=== PATIENT | male | born 1990 | race Caucasian/White ===

== ENCOUNTER 2020-12-01 23:35 | Inpatient (IN) | payer OTHER, SELFPAY ==
--- NOTE | 2020-12-02 | ECG_ITS ---
Test Reason : New admission Blood Pressure : / mmHG Vent. Rate : 086 BPM Atrial Rate : 086 BPM P-R Int : 152 ms QRS Dur : 108 ms QT Int : 348 ms P-R-T Axes : 057 031 033 degrees QTc Int : 416 ms Normal sinus rhythm Normal ECG No previous ECGs available Referred By: Jennifer Ko Electronically Signed By:Sebastian Fine
[2020-12-02 01:23] VITALS: BMI 32.8
[2020-12-02 01:24] VITALS: BP 115/73; PULSE 88; RESP 20; TEMP 36.1; O2SAT 95
--- NOTE | 2020-12-02 02:44 | PC.ADMIT ---
Pt is a 30 yo male on a CV, 15 min checks. 3 days ago he was brought to [facility] for his 2nd heroin OD in 2 days. Pt denies ODs were intentional. Pt said the cut a bundle of heroin in half and it was stronger than he expected. Pt denies SI or HI. Pt contracts for safety and is in full control of aggressive impulses. On admission Pt was calm, stable and cooperative. Pt reports drinking around 6 beers daily. Pt last drank or drugged prior to going to [facility] ED. Pt shows no signs/symptoms or has any complaints of withdrawal. Pt's goal for admission is to get medications for his anxiety and depression. Pt says his anxiety attacks feel like heart attacks. Pt also described having the symptoms of agoraphobia. This RN and Pt had a short discussion that sobriety should be in his future plans. Pt. doesn't seem to have insight into the full gravity of his MDD, OD's and ETOH use. Pt denied taking any prescribed medications. Dale reports last Rx: Klonopin 1mg, 1 1/2 tab BID for 3 days filled 09/13/20. Everything else was from 03/22
[2020-12-02 08:50] LABS: MANUAL DIFF FLAG NO
[2020-12-02 09:06] LABS: Basophils Absolute Auto 0.1 X10*3/uL (0.0-0.2); Basophils Percent Auto 0.8 % (0-2); Eosinophils Absolute Auto 0.2 X10*3/uL (0.0-0.4); Eosinophils Percent Auto 2.8 % (0-4); Hematocrit 44.6 % (42-52); Hemoglobin 15.5 g/dl (14.0-18.0); Imm Gran Abs Auto 0.02 X10*3/uL (0.00-0.03); Imm Gran Pct Auto 0.3 % (0.0-0.4); Lymphocytes Absolute Auto 1.7 X10*3/uL (1.2-4.9); Lymphocytes Percent Auto 25.7 % (20-40); Mean Corpuscular HGB Conc 34.8 g/dl (31.0-36.0); Mean Corpuscular Hemoglobin 32.4 pg (27.0-33.0); Mean Corpuscular Volume 93.1 fL (80-98); Mean Platelet Volume 10.2 fL (9.4-12.4); Monocytes Absolute Auto 0.5 X10*3/uL (0.1-1.2); Monocytes Percent Auto 8.3 % (2-11); Neutrophils Percent Auto 62.1 % (45-73); Platelet Count 246 X10*3/uL (160-400); Red Blood Count 4.79 X10*6/uL (4.60-5.80); Red Cell Distribution Width 11.6 % (11.0-16.0); White Blood Count 6.4 X10*3/uL (4.8-10.8)
[2020-12-02 09:42] LABS: Alanine Aminotransferase 20 U/L (0-40); Albumin Level 4.3 g/dL (3.5-5.0); Alkaline Phosphatase 63 U/L (39-117); Anion Gap 14 (12-20); Aspartate Amino Transferase 17 U/L (5-37); Bilirubin Total 1.2 mg/dL (0.0-1.0); Blood Urea Nitrogen 12 mg/dL (9-16); Calcium 9.2 mg/dL (8.4-10.2); Carbon Dioxide 27 mmol/L (22-29); Chloride 102 mmol/L (96-108); Creatinine Clr Calc Pharmacy 168.2; Estimated Glomerular Filt Rate > 60; Glucose Fasting 79 mg/dL (60-99); Potassium 4.1 mmol/L (3.3-5.1); Sodium 139 mmol/L (135-145)
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
[2020-12-02 18:00] VITALS: BP 135/92; PULSE 76; TEMP 36.6
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
[2020-12-03 06:05] VITALS: BP 92/50; PULSE 65; RESP 16; TEMP 36.4
--- NOTE | 2020-12-03 08:28 | HE.PHANOTE ---
OVERNIGHT MD CALLED PHARMACY TO SEE IF WE COULD HELP INVESTIGATE A MED PATIENT WAS REPORTING BEING ON OUTPATIENT. PER MD PT WAS REPORTING BEING ON LISINOPRIL BUT DID NOT KNOW THE DOSE. HE REPORTED THAT HIS MOTHER HAD THE BOTTLE BUT HER CONTACT INFO IS NOT IN [employer]. NO LISINOPRIL IN CLAIM HISTORY. CALLED UNIT TO GET MORE INFO FROM PATIENT AND NURSE REPORTED THAT NOW PATIENT IS SAYING HE HAS NO MEMORY OF SAYING HE WAS ON LISINOPRIL AND PATIENT DOES NOT WANT US TO CONTACT HIS MOTHER. PATIENT'S BP IS CURRENTLY LOW, MD HAD ORDERED LISINOPRIL 10MG, CONTACTED RN AND TALKED HER NOT TO GIVE DUE TO LOW BP, CONTACTED HOSPITALIST QB TO [facility] MED.
--- NOTE | 2020-12-03 09:39 | HO.PSYCHPN ---
Subjective Subjective Date of Service: 12/03/20 Reason For Visit: Major Depressive Disorder Interim History: Patient reports he is doing okay. He talked more about his depression and says that he feels often worried that successful not happen which limits his willingness to try at things. Patient shared that he is more open to considering SSRI type of medication. Upper Lining Cementer reviewed Nikole's report that he only picked up a script for Prozac 1 time. Patient says that he certainly took it for a much longer time, but upon reflecting he realizes it was probably just intermittently and not consistently every day and agrees he probably never reached what handbook writer had described as a therapeutic dose and duration. He also thinks that perhaps it was Paxil, and not Prozac, that caused discontinuation syndrome. Patient said he is more willing to retry therapy. He agrees to further think about starting an SSRI and will discuss more tomorrow. Patient asked again and handbook writer reviewed risks, side effects of naltrexone which patient said he would like to get on and agrees to start this weekend. Mental Status Exam Mental Status Exam Narrative: Pt is alert and oriented; behavior is cooperative, friendly and calm; patient is not in distress; dressed in casual attire with adequate hygiene; mood is described as ok and affect congruent; eye contact appropriate; Speech is normal rate, volume and prosody and not pressured; no psychomotor agitation/retardation present; thought process is organized, linear, logical and goal directed. Thought content is on getting treatment but no longer focused on benzo's and otherwise pertinent to relevant topics and without any delusional content, paranoid ideations or grandiosity; denies any SI/HI. There is no evidence of perceptual disturbance. Patients insight and judgment appear intact. Diagnostics Vital Signs (24Hr): Vital Signs - 24 hr 12/02/20 18:00 12/03/20 06:05 Temperature 97.9 F 97.5 F Pulse Rate 76 65 Respiratory Rate 16 Blood Pressure 135/92 H 92/50 L Body Mass Index 32.8 Labs Results: 12/02/20 08:05 12/02/20 08:05 Labs: Laboratory Results - last 48 hr 12/02/20 12/02/20 08:05 08:05 WBC 6.4 RBC 4.79 Hgb 15.5 Hct 44.6 MCV 93.1 MCH 32.4 MCHC 34.8 RDW 11.6 Plt Count 246 MPV 10.2 Immature Gran % (Auto) 0.3 Neut % (Auto) 62.1 Lymph % (Auto) 25.7 [place] % (Auto) 8.3 Eos % (Auto) 2.8 Baso % (Auto) 0.8 Lymph # (Auto) 1.7 [place] # (Auto) 0.5 Eos # (Auto) 0.2 Baso # (Auto) 0.1 Abs Immat Gran (auto) 0.02 Absolute Neuts (auto) 4.0 Absolute Nucleated RBC 0.000 Nucleated RBC % (auto) 0.0 Sodium 139 Potassium 4.1 Chloride 102 Carbon Dioxide 27 Anion Gap 14 BUN 12 Creatinine 0.83 Estim Creat Clear Calc 168.2 Estimated GFR > 60 Fasting Glucose 79 Calcium 9.2 Total Bilirubin 1.2 H AST 17 ALT 20 Alkaline Phosphatase 63 Total Protein 7.0 Albumin 4.3 Medications Medications Current Medications Generic Name Dose Route Start Last Admin Trade Name Freq PRN Reason Stop Dose Admin Acetaminophen 650 mg 12/02/20 06:26 Acetaminophen 325 Mg Tablet PO Q6H PRN Headache/Pain Mild Scale (1-3) Al Hydroxide/Mg Hydroxide 30 ml 12/02/20 06:26 Magnesium Hydrox/Alum Hydrox 30 Ml Oral.Susp PO Q6H PRN Heartburn/Nausea Clonidine HCl 0.1 mg 12/02/20 15:49 Clonidine Hcl 0.1 Mg Tablet PO Q4H PRN Anxiety Protocol Hydroxyzine HCl 50 mg 12/02/20 15:49 Hydroxyzine Hcl 25 Mg Tablet PO BEDTIME PRN Insomnia Lisinopril 10 mg 12/03/20 09:00 Lisinopril 10 Mg Tablet PO DAILY [facility] Protocol Lorazepam 1 mg 12/02/20 15:49 Lorazepam 1 Mg Tablet PO DAILY PRN PANIC ATTACK Magnesium Hydroxide 30 ml 12/02/20 06:26 Milk Of Magnesia 30 Ml Oral.Susp PO DAILY PRN Constipation Nicotine Polacrilex 2 mg 12/02/20 06:26 Nicotine Polacrilex 2 Mg Gum BUCCAL Q2H PRN Nicotine Cravings Omeprazole 20 mg 12/04/20 06:30 Omeprazole 20 Mg Capsule. PO DAILY@0630 [facility] Allergies Allergies Allergy/AdvReac Type Severity Reaction Status Date / Time Unable to Assess Allergy Unverified 12/02/20 06:26 Assessment & Plan Assessment & Plan (1) Hypertension: Status: Inactive Code(s): I10 - Essential (primary) hypertension (2) PTSD (post-traumatic stress disorder): Status: Acute Code(s): F43.10 - Post-traumatic stress disorder, unspecified (3) ASUNCION (generalized anxiety disorder): Status: Acute Code(s): F41.1 - Generalized anxiety disorder (4) Opioid abuse: Status: Acute Code(s): F11.10 - Opioid abuse, uncomplicated Assessment and Plan: Pt is a 30 yo male w/ hx of depression, ptsd, substance abuse who presents after accidental overdose on heroin. Pt reports crippling anxiety and reported agoraphobia. Will need to assess further to rule out OCD. Patient reports 1 trial on Prozac that he says did nothing. He was initially very focused on being prescribed benzodiazepines and seems to resist trials of other medications that address this type of anxiety. Upper Lining Cementer tried to explain risks of benzodiazepine including addiction and dangers when combined with substance abuse, however patient struggled to accept that he was not a candidate for benzos. To that end however he said he would very willingly get on naltrexone to stay sober from opiates. Patient denies any SI at all. He reports minimal depression and says it is mostly due to struggles with anxiety (of note crisis note reports Mai depression inventory revealed only ?borderline clinical depression ). Patient discussed his history with therapist expressing some vague suspicions, but no clear paranoid ideations. Patient has become more willing to consider SSRIs and is no longer asking for benzos. PLAN pt on CV consider trial of SSRI/SNRI get pt on naltrexone Ativan 1 mg daily for panic attack Per medical clearance: # hypertension - patient reports history of hypertension and taking lisinopril - he does not know the dose of his medications - his blood pressure is 135/92 - will start him on lisinopril 10 mg at this time, will solicit pharmacy account director in finding out more information about his medication use # GERD - warts that he takes omeprazole at home - will continue that Greater than 50% of the session was spent on counseling and/or coordination of care Reason for contiued inpatient stay Substantial Risk for: med/psych decompensation
[2020-12-03 10:08] LABS: Cholesterol 203 mg/dL; HDL Cholesterol 54 mg/dL; LDL Cholesterol Calculated 132 mg/dl; Triglycerides 85 mg/dL
[2020-12-03 10:11] LABS: Estimated Average Glucose 85 mg/dL; Hemoglobin A1c % 4.6 %
[2020-12-03] MEDS: LORazepam 1 MG TABLET PO (12:02)
[2020-12-03 18:00] VITALS: BP 111/78; PULSE 90; TEMP 36.6
[2020-12-03] MEDS: Melatonin 3 MG TABLET PO (20:05)
[2020-12-04] MEDS: LORazepam 1 MG TABLET PO (01:26)
[2020-12-04 06:05] VITALS: BP 104/55; PULSE 72; RESP 16; TEMP 36.1; O2SAT 95
[2020-12-04] MEDS: Omeprazole 20 MG CAPSULE.DR PO (06:17)
--- NOTE | 2020-12-04 14:30 | P.PNPSI_ITS ---
Subjective Subjective Date of Service: 12/04/20 Reason For Visit: Major Depressive Disorder Interim History: pt reports his mood is a little better, but he remains anxious. He agrees to trial of SSRI and is open to Prozac, Zoloft, lexapro or whatever commercial real estate underwriter thinks best. He asks if ativan can be changed to Clonazepam since it's longer acting however accepts writers discussion that goal is find an SSRI that helps lower anxiety and do not want to muddy clinical picture with change of benzo's; commercial real estate underwriter also explained that pt will not be able to have a prescription for benzo's (maybe 4/month total in case of panic) given struggles with substance abuse. To that end, pt agrees to start Naltrexone and hopes to get on Vivitrol. Pt said he's feeling like he'll be ready to discharge early next week. Hand Stone Polisher asked again about SI, to which pt denies and says has nothing to do with consecurtive overdoses; he says he knows that back to back overdoses looks like SI, but he says though he feels it was the dumbest thing he's ever done, he had and has no SI at all. Mental Status Exam Mental Status Exam Narrative: Pt is alert and oriented; behavior is cooperative, friendly and calm; patient is not in distress; dressed in casual attire with adequate hygiene; mood is described as good and affect congruent; eye contact appropriate; Speech is normal rate, volume and prosody and not pressured; no psychomotor agitation/retardation present; thought process is organized, linear, logical and goal directed. Thought content is on getting treatment; pertinent to relevant topics and without any delusional content, paranoid ideations or grandiosity; denies any SI/HI. There is no evidence of perceptual disturbance. Patients insight and judgment appear intact. Diagnostics Vital Signs (24Hr): Vital Signs - 24 hr 12/03/20 18:00 12/04/20 06:05 Temperature 98 F 96.9 F Pulse Rate 90 72 Respiratory Rate 16 Blood Pressure 111/78 104/55 L Pulse Oximetry 95 Body Mass Index 32.8 Labs Results: 12/02/20 08:05 12/02/20 08:05 Labs: Laboratory Results - last 48 hr 12/03/20 12/03/20 08:16 08:16 Estimat Average Glucose 85 Hemoglobin A1c % 4.6 Triglycerides 85 Cholesterol 203 LDL Cholesterol, Calc 132 HDL Cholesterol 54 Medications Medications Current Medications Generic Name Dose Route Start Last Admin Trade Name Freq PRN Reason Stop Dose Admin Acetaminophen 650 mg 12/02/20 06:26 Acetaminophen 325 Mg Tablet PO Q6H PRN Headache/Pain Mild Scale (1-3) Al Hydroxide/Mg Hydroxide 30 ml 12/02/20 06:26 Magnesium Hydrox/Alum Hydrox 30 Ml Oral.Susp PO Q6H PRN Heartburn/Nausea Clonidine HCl 0.1 mg 12/02/20 15:49 Clonidine Hcl 0.1 Mg Tablet PO Q4H PRN Anxiety Protocol Hydroxyzine HCl 50 mg 12/02/20 15:49 Hydroxyzine Hcl 25 Mg Tablet PO BEDTIME PRN Insomnia Lorazepam 1 mg 12/02/20 15:49 12/04/20 01:26 Lorazepam 1 Mg Tablet PO 1 mg DAILY PRN Administration PANIC ATTACK Magnesium Hydroxide 30 ml 12/02/20 06:26 Milk Of Magnesia 30 Ml Oral.Susp PO DAILY PRN Constipation Melatonin 3 mg 12/03/20 17:46 12/03/20 20:05 Melatonin 3 Mg Tablet PO 3 mg BEDTIME PRN Administration Insomnia Nicotine Polacrilex 2 mg 12/02/20 06:26 Nicotine Polacrilex 2 Mg Gum BUCCAL Q2H PRN Nicotine Cravings Omeprazole 20 mg 12/04/20 06:30 12/04/20 06:17 Omeprazole 20 Mg Capsule. PO 20 mg DAILY@0630 ASAEL Administration Allergies Allergies Allergy/AdvReac Type Severity Reaction Status Date / Time Unable to Assess Allergy Unverified 12/02/20 06:26 Assessment & Plan Assessment & Plan (1) Hypertension: Status: Inactive Code(s): I10 - Essential (primary) hypertension (2) PTSD (post-traumatic stress disorder): Status: Acute Code(s): F43.10 - Post-traumatic stress disorder, unspecified (3) ASUNCION (generalized anxiety disorder): Status: Acute Code(s): F41.1 - Generalized anxiety disorder (4) Opioid abuse: Status: Acute Code(s): F11.10 - Opioid abuse, uncomplicated Assessment and Plan: Pt is a 30 yo male w/ hx of depression, ptsd, substance abuse who presents after accidental overdose on heroin. Pt reports crippling anxiety and reported agora phobia. Will need to assess further to rule out OCD. Patient reports 1 trial on Prozac that he says did nothing. He was initially very focused on being prescribed benzodiazepines and seems to resist trials of other medications that address this type of anxiety. Hand Stone Polisher tried to explain risks of benzodiazepine including addiction and dangers when combined with substance abuse, however patient struggled to accept that he was not a candidate for benzos. To that end however he said he would very willingly get on naltrexone to stay sober from opiates. Patient denies any SI at all. He reports minimal depression and says it is mostly due to struggles with anxiety (of note crisis note reports Mai depression inventory revealed only ?borderline clinical depression ). Patient discussed his history with therapist expressing some vague suspicions, but no clear paranoid ideations. Patient agrees to start SSRI; will start Lexapro given lower side-effect profile and possible less risk of being activating given pt's hx of anxiety PLAN pt on CV start Lexapro 10mg start naltrexone will get lfts after day or two with goal to get on vivitrol Ativan 1 mg daily for panic attack Per medical clearance: # hypertension - patient reports history of hypertension and taking lisinopril - he does not know the dose of his medications - his blood pressure is 135/92 - will start him on lisinopril 10 mg at this time, will solicit pharmacy customer care specialist in finding out more information about his medication use # GERD - warts that he takes omeprazole at home - will continue that Greater than 50% of the session was spent on counseling and/or coordination of care Reason for contiued inpatient stay Substantial Risk for: med/psych decompensation
[2020-12-04 16:40] VITALS: BP 126/67; PULSE 86; TEMP 36.6
[2020-12-05] MEDS: LORazepam 1 MG TABLET PO (01:00)
[2020-12-05] MEDS: Omeprazole 20 MG CAPSULE.DR PO (08:22)
[2020-12-05] MEDS: Naltrexone HCl 50 MG TABLET PO (08:22)
[2020-12-05] MEDS: Escitalopram Oxalate 10 MG TABLET PO (12:29)
[2020-12-05 17:00] VITALS: BP 134/75; PULSE 83; RESP 18; TEMP 36.4; O2SAT 94
--- NOTE | 2020-12-05 20:55 | P.PNPSI_ITS ---
Subjective Subjective Date of Service: 12/05/20 Reason For Visit: Major Depressive Disorder Interim History: Thiago agreed to start lexapro which was Rx by Dr. Hernandez today. He was pleasant and cooperative and had no immediate concerns Medication Compliance: Yes Side effects from medications: No Attending Groups: Yes Review of Systems Acute medical concerns: No Medical Review of Systems: unchanged Mental Status Exam Mental Status Exam Narrative: Pt is alert and oriented; behavior is cooperative, friendly and calm; patient is not in distress; dressed in casual attire with adequate hygiene; mood is described as good and affect congruent; eye contact appropriate; Speech is normal rate, volume and prosody and not pressured; no psychomotor agitation/retardation present; thought process is organized, linear, logical and goal directed. Thought content is on getting treatment; pertinent to relevant topics and without any delusional content, paranoid ideations or grandiosity; denies any SI/HI. There is no evidence of perceptual disturbance. Patients insight and judgment appear intact. Diagnostics Vital Signs (24Hr): Vital Signs - 24 hr 12/05/20 17:00 Temperature 97.5 F Pulse Rate 83 Respiratory Rate 18 Blood Pressure 134/75 Pulse Oximetry 94 Body Mass Index 32.8 Labs Results: 12/02/20 08:05 12/02/20 08:05 Medications Medications Current Medications Generic Name Dose Route Start Last Admin Trade Name Kyleq PRN Reason Stop Dose Admin Acetaminophen 650 mg 12/02/20 06:26 Acetaminophen 325 Mg Tablet PO Q6H PRN Headache/Pain Mild Scale (1-3) Al Hydroxide/Mg Hydroxide 30 ml 12/02/20 06:26 Magnesium Hydrox/Alum Hydrox 30 Ml Oral.Susp PO Q6H PRN Heartburn/Nausea Clonidine HCl 0.1 mg 12/02/20 15:49 Clonidine Hcl 0.1 Mg Tablet PO Q4H PRN Anxiety Protocol Escitalopram Oxalate 10 mg 12/05/20 12:05 12/05/20 12:29 Escitalopram Oxalate 10 Mg Tablet PO 10 mg DAILY ASAEL Administration Hydroxyzine HCl 50 mg 12/02/20 15:49 Hydroxyzine Hcl 25 Mg Tablet PO BEDTIME PRN Insomnia Lorazepam 1 mg 12/02/20 15:49 12/05/20 01:00 Lorazepam 1 Mg Tablet PO 1 mg DAILY PRN Administration PANIC ATTACK Magnesium Hydroxide 30 ml 12/02/20 06:26 Milk Of Magnesia 30 Ml Oral.Susp PO DAILY PRN Constipation Melatonin 3 mg 12/03/20 17:46 12/03/20 20:05 Melatonin 3 Mg Tablet PO 3 mg BEDTIME PRN Administration Insomnia Naltrexone HCl 50 mg 12/05/20 09:00 12/05/20 08:22 Naltrexone Hcl 50 Mg Tablet PO 50 mg DAILY ASAEL Administration Nicotine Polacrilex 2 mg 12/02/20 06:26 Nicotine Polacrilex 2 Mg Gum BUCCAL Q2H PRN Nicotine Cravings Omeprazole 20 mg 12/04/20 06:30 12/05/20 08:22 Omeprazole 20 Mg Capsule. PO 20 mg DAILY@0630 ASAEL Administration Allergies Allergies Allergy/AdvReac Type Severity Reaction Status Date / Time Unable to Assess Allergy Unverified 12/02/20 06:26 Assessment & Plan Assessment & Plan (1) Hypertension: Status: Inactive Code(s): I10 - Essential (primary) hypertension (2) PTSD (post-traumatic stress disorder): Status: Acute Code(s): F43.10 - Post-traumatic stress disorder, unspecified (3) ASUNCION (generalized anxiety disorder): Status: Acute Code(s): F41.1 - Generalized anxiety disorder (4) Opioid abuse: Status: Acute Code(s): F11.10 - Opioid abuse, uncomplicated Assessment and Plan: Pt is a 30 yo male w/ hx of depression, ptsd, substance abuse who presents after accidental overdose on heroin. Pt reports crippling anxiety and reported agoraphobia. Will need to assess further to rule out OCD. Patient reports 1 trial on Prozac that he says did nothing. He was initially very focused on being prescribed benzodiazepines and seems to resist trials of other medications that address this type of anxiety. Business Transformation Analyst tried to explain risks of benzodiazepine including addiction and dangers when combined with substance abuse, however patient struggled to accept that he was not a candidate for benzos. To that end however he said he would very willingly get on naltrexone to stay sober from opiates. Patient denies any SI at all. He reports minimal depression and says it is mostly due to struggles with anxiety (of note crisis note reports Mai depression inventory revealed only ?borderline clinical depression ). Patient discussed his history with therapist expressing some vague suspicions, but no clear paranoid ideations. Patient agrees to start SSRI; will start Lexapro given lower side-effect profile and possible less risk of being activating given pt's hx of anxiety PLAN pt on CV start Lexapro 10mg start naltrexone will get lfts after day or two with goal to get on vivitrol Ativan 1 mg daily for panic attack Per medical clearance: # hypertension - patient reports history of hypertension and taking lisinopril - he does not know the dose of his medications - his blood pressure is 135/92 - will start him on lisinopril 10 mg at this time, will solicit nurses medical assistants phlebotomists in finding out more information about his medication use # GERD - warts that he takes omeprazole at home - will continue that Continue plan as above without change Greater than 50% of the session was spent on counseling and/or coordination of care Patient educated on: diagnosis and medication risk/benefits Informed Consent: further education needed Reason for contiued inpatient stay Substantial Risk for: inability to function
[2020-12-06] MEDS: Omeprazole 20 MG CAPSULE.DR PO (05:47)
[2020-12-06 06:00] VITALS: BP 133/69; PULSE 100; RESP 20; TEMP 36.2; O2SAT 97
[2020-12-06] MEDS: Escitalopram Oxalate 10 MG TABLET PO (08:08)
[2020-12-06] MEDS: Naltrexone HCl 50 MG TABLET PO (08:08)
[2020-12-06] MEDS: LORazepam 1 MG TABLET PO (13:10)
[2020-12-06 16:47] VITALS: BP 121/84; PULSE 98; RESP 18; TEMP 36.5; O2SAT 96
--- NOTE | 2020-12-06 18:46 | HO.PSYCHPN ---
Subjective Subjective Date of Service: 12/06/20 Reason For Visit: Major Depressive Disorder Interim History: Thiago was playing cards with his peers and he stated that he had no immediate concerns Medication Compliance: Yes Side effects from medications: No Review of Systems Acute medical concerns: No Medical Review of Systems: unchanged Mental Status Exam Mental Status Exam Narrative: Pt is alert and oriented; behavior is cooperative, friendly and calm; patient is not in distress; dressed in casual attire with adequate hygiene; mood is described as good and affect congruent; eye contact appropriate; Speech is normal rate, volume and prosody and not pressured; no psychomotor agitation/retardation present; thought process is organized, linear, logical and goal directed. Thought content is on getting treatment; pertinent to relevant topics and without any delusional content, paranoid ideations or grandiosity; denies any SI/HI. There is no evidence of perceptual disturbance. Patients insight and judgment appear intact. Diagnostics Vital Signs (24Hr): Vital Signs - 24 hr 12/06/20 06:00 12/06/20 16:47 Temperature 97.1 F 97.7 F Pulse Rate 100 98 Respiratory Rate 20 18 Blood Pressure 133/69 121/84 Pulse Oximetry 97 96 Body Mass Index 32.8 Labs Results: 12/02/20 08:05 12/02/20 08:05 Medications Medications Current Medications Generic Name Dose Route Start Last Admin Trade Name Kyleq PRN Reason Stop Dose Admin Acetaminophen 650 mg 12/02/20 06:26 Acetaminophen 325 Mg Tablet PO Q6H PRN Headache/Pain Mild Scale (1-3) Al Hydroxide/Mg Hydroxide 30 ml 12/02/20 06:26 Magnesium Hydrox/Alum Hydrox 30 Ml Oral.Susp PO Q6H PRN Heartburn/Nausea Clonidine HCl 0.1 mg 12/02/20 15:49 Clonidine Hcl 0.1 Mg Tablet PO Q4H PRN Anxiety Protocol Escitalopram Oxalate 10 mg 12/05/20 12:05 12/06/20 08:08 Escitalopram Oxalate 10 Mg Tablet PO 10 mg DAILY ASAEL Administration Hydroxyzine HCl 50 mg 12/02/20 15:49 Hydroxyzine Hcl 25 Mg Tablet PO BEDTIME PRN Insomnia Lorazepam 1 mg 12/02/20 15:49 12/06/20 13:10 Lorazepam 1 Mg Tablet PO 1 mg DAILY PRN Administration PANIC ATTACK Magnesium Hydroxide 30 ml 12/02/20 06:26 Milk Of Magnesia 30 Ml Oral.Susp PO DAILY PRN Constipation Melatonin 3 mg 12/03/20 17:46 12/03/20 20:05 Melatonin 3 Mg Tablet PO 3 mg BEDTIME PRN Administration Insomnia Naltrexone HCl 50 mg 12/05/20 09:00 12/06/20 08:08 Naltrexone Hcl 50 Mg Tablet PO 50 mg DAILY ASAEL Administration Nicotine Polacrilex 2 mg 12/02/20 06:26 Nicotine Polacrilex 2 Mg Gum BUCCAL Q2H PRN Nicotine Cravings Omeprazole 20 mg 12/04/20 06:30 12/06/20 05:47 Omeprazole 20 Mg Capsule. PO 20 mg DAILY@0630 ASAEL Administration Allergies Allergies Allergy/AdvReac Type Severity Reaction Status Date / Time Unable to Assess Allergy Unverified 12/02/20 06:26 Assessment & Plan Assessment & Plan (1) Hypertension: Status: Inactive Code(s): I10 - Essential (primary) hypertension (2) PTSD (post-traumatic stress disorder): Status: Acute Code(s): F43.10 - Post-traumatic stress disorder, unspecified (3) ASUNCION (generalized anxiety disorder): Status: Acute Code(s): F41.1 - Generalized anxiety disorder (4) Opioid abuse: Status: Acute Code(s): F11.10 - Opioid abuse, uncomplicated Assessment and Plan: Pt is a 30 yo male w/ hx of depression, ptsd, substance abuse who presents after accidental overdose on heroin. Pt reports crippling anxiety and reported agoraphobia. Will need to assess further to rule out OCD. Patient reports 1 trial on Prozac that he says did nothing. He was initially very focused on being prescribed benzodiazepines and seems to resist trials of other medications that address this type of anxiety. Ammonia Solution Preparer tried to explain risks of benzodiazepine including addiction and dangers when combined with substance abuse, however patient struggled to accept that he was not a candidate for benzos. To that end however he said he would very willingly get on naltrexone to stay sober from opiates. Patient denies any SI at all. He reports minimal depression and says it is mostly due to struggles with anxiety (of note crisis note reports Mai depression inventory revealed only ?borderline clinical depression ). Patient discussed his history with therapist expressing some vague suspicions, but no clear paranoid ideations. Patient agrees to start SSRI; will start Lexapro given lower side-effect profile and possible less risk of being activating given pt's hx of anxiety PLAN pt on CV start Lexapro 10mg start naltrexone will get lfts after day or two with goal to get on vivitrol Ativan 1 mg daily for panic attack Per medical clearance: # hypertension - patient reports history of hypertension and taking lisinopril - he does not know the dose of his medications - his blood pressure is 135/92 - will start him on lisinopril 10 mg at this time, will solicit pharmacy general manager in finding out more information about his medication use # GERD - warts that he takes omeprazole at home - will continue that Continue plan as above without change Greater than 50% of the session was spent on counseling and/or coordination of care Patient educated on: diagnosis and medication risk/benefits Informed Consent: further education needed Reason for contiued inpatient stay Substantial Risk for: inability to function
[2020-12-07 06:00] VITALS: BP 122/77; PULSE 75; RESP 16; TEMP 36.4; O2SAT 95
[2020-12-07] MEDS: Omeprazole 20 MG CAPSULE.DR PO (06:45)
[2020-12-07] MEDS: Naltrexone HCl 50 MG TABLET PO (08:31)
[2020-12-07] MEDS: Escitalopram Oxalate 10 MG TABLET PO (08:32)
[2020-12-07 09:19] LABS: Alanine Aminotransferase 20 U/L (0-40); Albumin Level 4.1 g/dL (3.5-5.0); Alkaline Phosphatase 61 U/L (39-117); Aspartate Amino Transferase 18 U/L (5-37); Bilirubin Direct 0.3 mg/dL (0.0-0.5); Total Protein 6.7 g/dL (6.5-8.0)
[2020-12-07] MEDS: LORazepam 1 MG TABLET PO (14:37)
[2020-12-07 16:43] VITALS: BP 146/67; PULSE 80; RESP 18; TEMP 36.2; O2SAT 96
[2020-12-08] MEDS: Melatonin 3 MG TABLET PO (01:43)
[2020-12-08 06:20] VITALS: BP 129/73; PULSE 81; RESP 16; TEMP 36.8; O2SAT 95
[2020-12-08] MEDS: Omeprazole 20 MG CAPSULE.DR PO (09:30)
[2020-12-08] MEDS: Escitalopram Oxalate 20 MG TABLET PO (09:30)
[2020-12-08] MEDS: Naltrexone HCl 50 MG TABLET PO (09:31)
--- NOTE | 2020-12-08 09:47 | HO.PSYCHPN ---
Subjective Subjective Date of Service: 12/07/20 Reason For Visit: Major Depressive Disorder Subjective Notes: 3 Day Interim History: pt placed 3 day; he says he feels mostly ready to go but put in a 3 day since the unit milue was acute over the weekend and pt felt it was a counterproductive and triggering for his anxiety. To that end he reports no problems with Lexapro and agrees to increased dose; he says no side-effects with naltrexone and is grateful to have something to keep him sober. Pt says he wants to get on Vivitrol OBINNA and is pleased to hear he has outpt appointment set up. Pt broached topic of benzo's and accepts that handbook writer will give a limited supply for panic and that he'll get opportunity to establish relationship with outpt provider and discuss it further; to that end, pt understands that there are many other options yet to be explored to deal with his anxiety other than benzo's. Pt denies any SI or HI and says he has hope for continued recovery. Medication Compliance: Yes Side effects from medications: No Attending Groups: Intermittent Mental Status Exam Mental Status Exam Narrative: Pt is alert and oriented; behavior is cooperative, friendly and calm; patient is not in distress; dressed in casual attire with adequate hygiene; mood is described as anxious and affect congruent; eye contact appropriate; Speech is normal rate, volume and prosody and not pressured; no psychomotor agitation/retardation present; thought process is organized, linear, logical and goal directed. Thought content is on getting treatment; pertinent to relevant topics and without any delusional content, paranoid ideations or grandiosity; denies any SI/HI. There is no evidence of perceptual disturbance. Patients insight and judgment appear intact. Diagnostics Vital Signs (24Hr): Vital Signs - 24 hr 12/07/20 16:43 12/08/20 06:20 Temperature 97.2 F 98.2 F Pulse Rate 80 81 Respiratory Rate 18 16 Blood Pressure 146/67 H 129/73 Pulse Oximetry 96 95 Body Mass Index 32.8 Labs Results: 12/02/20 08:05 12/02/20 08:05 Labs: Laboratory Results - last 48 hr 12/07/20 08:09 Total Bilirubin 1.0 Direct Bilirubin 0.3 AST 18 ALT 20 Alkaline Phosphatase 61 Total Protein 6.7 Albumin 4.1 Medications Medications Current Medications Generic Name Dose Route Start Last Admin Trade Name Freq PRN Reason Stop Dose Admin Acetaminophen 650 mg 12/02/20 06:26 Acetaminophen 325 Mg Tablet PO Q6H PRN Headache/Pain Mild Scale (1-3) Al Hydroxide/Mg Hydroxide 30 ml 12/02/20 06:26 Magnesium Hydrox/Alum Hydrox 30 Ml Oral.Susp PO Q6H PRN Heartburn/Nausea Clonidine HCl 0.1 mg 12/02/20 15:49 Clonidine Hcl 0.1 Mg Tablet PO Q4H PRN Anxiety Protocol Escitalopram Oxalate 20 mg 12/08/20 09:00 12/08/20 09:30 Escitalopram Oxalate 20 Mg Tablet PO 20 mg DAILY ASAEL Administration Hydroxyzine HCl 50 mg 12/02/20 15:49 Hydroxyzine Hcl 25 Mg Tablet PO BEDTIME PRN Insomnia Lorazepam 1 mg 12/02/20 15:49 12/07/20 14:37 Lorazepam 1 Mg Tablet PO 1 mg DAILY PRN Administration PANIC ATTACK Magnesium Hydroxide 30 ml 12/02/20 06:26 Milk Of Magnesia 30 Ml Oral.Susp PO DAILY PRN Constipation Melatonin 3 mg 12/03/20 17:46 12/08/20 01:43 Melatonin 3 Mg Tablet PO 3 mg BEDTIME PRN Administration Insomnia Naltrexone HCl 50 mg 12/05/20 09:00 12/08/20 09:31 Naltrexone Hcl 50 Mg Tablet PO 50 mg DAILY ASAEL Administration Nicotine Polacrilex 2 mg 12/02/20 06:26 Nicotine Polacrilex 2 Mg Gum BUCCAL Q2H PRN Nicotine Cravings Omeprazole 20 mg 12/04/20 06:30 12/08/20 09:30 Omeprazole 20 Mg Capsule. PO 20 mg DAILY@0630 ASAEL Administration Allergies Allergies Allergy/AdvReac Type Severity Reaction Status Date / Time Unable to Assess Allergy Unverified 12/02/20 06:26 Assessment & Plan Assessment & Plan (1) Hypertension: Status: Inactive Code(s): I10 - Essential (primary) hypertension (2) PTSD (post-traumatic stress disorder): Status: Acute Code(s): F43.10 - Post-traumatic stress disorder, unspecified (3) ASUNCION (generalized anxiety disorder): Status: Acute Code(s): F41.1 - Generalized anxiety disorder (4) Opioid abuse: Status: Acute Code(s): F11.10 - Opioid abuse, uncomplicated Assessment and Plan: Pt is a 30 yo male w/ hx of depression, ptsd, substance abuse who presents after accidental overdose on heroin. Pt reports crippling anxiety and reported agoraphobia. Will need to assess further to rule out OCD. Patient reports 1 trial on Prozac that he says did nothing. He was initially very focused on being prescribed benzodiazepines and seems to resist trials of other medications that address this type of anxiety. Sales Floor Team Member tried to explain risks of benzodiazepine including addiction and dangers when combined with substance abuse, however patient struggled to accept that he was not a candidate for benzos. To that end however he said he would very willingly get on naltrexone to stay sober from opiates. Patient denies any SI at all. He reports minimal depression and says it is mostly due to struggles with anxiety (of note crisis note reports Mai depression inventory revealed only ?borderline clinical depression ). Patient discussed his history with therapist expressing some vague suspicions, but no clear paranoid ideations. Patient agrees to start SSRI; started Lexapro given lower side-effect profile and possible less risk of being activating given pt's hx of anxiety PLAN signed 3 day increased Lexapro 20mg on naltrexone lft's WNL goal to get on vivitrol Ativan 1 mg daily for panic attack Per medical clearance: # hypertension - patient reports history of hypertension and taking lisinopril - he does not know the dose of his medications - his blood pressure is 135/92 - will start him on lisinopril 10 mg at this time, will solicit clinical pharmacy manager in finding out more information about his medication use # GERD - warts that he takes omeprazole at home - will continue that Continue plan as above without change Greater than 50% of the session was spent on counseling and/or coordination of care Reason for contiued inpatient stay Substantial Risk for: stable for discharge
--- NOTE | 2020-12-08 10:37 | P.DS_ITS ---
DS: Providers Provider Date of Service: 12/08/20 Date of admission: 12/01/20 23:35 Date of discharge: 12/08/20 Primary care physician: Reza Sanders MD Admitting clinician: Jackson Hernandez Attending physician on admission: Jackson Hernandez Attending physician on discharge: Jackson Hernandez DS: Diagnosis Discharge Diagnosis (1) Hypertension: Status: Inactive (2) PTSD (post-traumatic stress disorder): Status: Chronic (3) ASUNCION (generalized anxiety disorder): Status: Chronic Problem details: r/o OCD (4) Opioid abuse: Status: Chronic DS: Medications Discharge Medications Home Medications: Lexapro 20mg daily Naltrexone 50mg daily Omeprazole 20mg daily Melatonin 3mg prn qhs Discharge Plan Discharge Patient Disposition: Home, Self-Care Discharge Diagnosis: ASUNCION Referrals: [facility] [Other] - 1 Week (Go to [employer] and type in the search engine Work in Field : [place] for [employer] online) Vivitrol Intake [Other] - 12/11/20 11:00 am (This is an in-person Intake appointment and takes about 1 hour. A follow-up appointment will be scheduled after this appointment to administer the Vivitrol Injectable Medication, usually 3-4 business days after the shot is ordered. Please bring a form of ID and insurance card to the appointment ) Sara De La Cruz (therapy) [Other] - 12/10/20 4:00 pm (This appointment is via Telehealth) Beatriz Raymond (psychiatry) [Other] - 01/07/21 2:00 pm (This appointment is via Telehealth) Beatriz Raymond (psychiatry) [Other] - 02/02/21 4:00 pm (This appointment is via Telehealth) Reza Sanders MD [Primary Care Provider] - 12/26/20 1:30 pm Discharge Medications: New escitalopram oxalate 20 mg Tablet 20 mg PO DAILY 30 Days Qty: 30 RF: 1 lorazepam 1 mg Tablet 1 mg PO DAILY PRN (Reason: PANIC ATTACK) 30 Days Qty: 8 RF: 0 naltrexone 50 mg Tablet 50 mg PO DAILY 30 Days Qty: 30 RF: 0 omeprazole 20 mg Capsule,Delayed Release(Dr/Ec) 20 mg PO DAILY@30 30 Days Qty: 30 RF: 0 melatonin 3 mg Tablet 3 mg PO BEDTIME PRN (Reason: Insomnia) 30 Days Qty: 30 RF: 0 Narcan 4 mg/actuation spray,non-aerosol 4 mg intranasal Q2M PRN (Reason: opioid overdose) Qty: 2 RF: 0 Discharge Orders: Discharge Order (Routine); Ordered 12/08/20 Ordered By: Jackson Hernandez Diet: regular diet Activity on Discharge: As tolerated Stand Alone Forms: Patient Portal Discharge page, Community Support Care Plan Goals: Maintain mood and safe behaviors Take medications as prescribed Continue to pursue sobriety Practice coping skills Continue with outpatient providers and reach out to them as needed Health Concerns: GERD Opioid abuse Anxiety Plan of Treatment: Follow up with your PCP and with your psychiatric provider regarding above concerns Take medications as prescribed Take Naltrexone daily until you receive Vivitrol injection Assessment: Risk assessment at time of discharge: Patient has been observed closely by nursing and unit staff throughout admission; patient has not engaged in any behaviors that suggest dangerousness to self or others and has demonstrated appropriate behaviors and impulse control. Patient was interviewed prior to discharge and found to be fully oriented and without any SI or HI. Patient has insight and demonstrates good judgment in terms of wanting to pursue treatment. Patient is not in imminent risk of harm to self or others and has a safety plan that includes presenting to the closest ER or calling 911 if feeling unsafe. Discharge Date/Time: 12/08/20 15:30 Mental Status Exam Mental Status Exam Narrative: Pt is alert and oriented; behavior is cooperative, friendly and calm; patient is not in distress; dressed in casual attire with adequate hygiene; mood is described as good and affect congruent; eye contact appropriate; Speech is normal rate, volume and prosody and not pressured; no psychomotor agitation/retardation present; thought process is organized, linear, logical and goal directed. Thought content is on discharge and pursuing treatment and pertinent to relevant topics and without any delusional content, paranoid ideations or grandiosity; denies any SI/HI. There is no evidence of perceptual disturbance. Patients insight and judgment appear intact. Data Data Completed and Pending Completed studies during hospitalization [Text1]: 12/02/20 12/02/20 12/03/20 08:05 08:05 08:16 WBC 6.4 RBC 4.79 Hgb 15.5 Hct 44.6 MCV 93.1 MCH 32.4 MCHC 34.8 RDW 11.6 Plt Count 246 MPV 10.2 Immature Gran % (Auto) 0.3 Neut % (Auto) 62.1 Lymph % (Auto) 25.7 [place] % (Auto) 8.3 Eos % (Auto) 2.8 Baso % (Auto) 0.8 Lymph # (Auto) 1.7 [place] # (Auto) 0.5 Eos # (Auto) 0.2 Baso # (Auto) 0.1 Abs Immat Gran (auto) 0.02 Absolute Neuts (auto) 4.0 Absolute Nucleated RBC 0.000 Nucleated RBC % (auto) 0.0 Sodium 139 Potassium 4.1 Chloride 102 Carbon Dioxide 27 Anion Gap 14 BUN 12 Creatinine 0.83 Estim Creat Clear Calc 168.2 Estimated GFR > 60 Fasting Glucose 79 Estimat Average Glucose 85 Hemoglobin A1c % 4.6 Calcium 9.2 Total Bilirubin 1.2 H Direct Bilirubin AST 17 ALT 20 Alkaline Phosphatase 63 Total Protein 7.0 Albumin 4.3 Triglycerides Cholesterol LDL Cholesterol, Calc HDL Cholesterol 12/03/20 12/07/20 08:16 08:09 WBC RBC Hgb Hct MCV MCH MCHC RDW Plt Count MPV Immature Gran % (Auto) Neut % (Auto) Lymph % (Auto) [place] % (Auto) Eos % (Auto) Baso % (Auto) Lymph # (Auto) [place] # (Auto) Eos # (Auto) Baso # (Auto) Abs Immat Gran (auto) Absolute Neuts (auto) Absolute Nucleated RBC Nucleated RBC % (auto) Sodium Potassium Chloride Carbon Dioxide Anion Gap BUN Creatinine Estim Creat Clear Calc Estimated GFR Fasting Glucose Estimat Average Glucose Hemoglobin A1c % Calcium Total Bilirubin 1.0 Direct Bilirubin 0.3 AST 18 ALT 20 Alkaline Phosphatase 61 Total Protein 6.7 Albumin 4.1 Triglycerides 85 Cholesterol 203 LDL Cholesterol, Calc 132 HDL Cholesterol 54 DS: Summary Hospital Course Hospital Course: Pt is a 30 yo male w/ hx of depression, ptsd, substance abuse who presents after accidental overdose on heroin. Pt reports crippling anxiety and reported agoraphobia with limited medication trials. Pt admitted on CV. On admission, pt reported ongoing anxiety about various topics that was present enough that patient would avoid going places; he said that he did not feel overly depressed and denied any SI. Despite having overdosed 2 times within a few days, both times needing Narcan, patient remained adamant that he was not suicidal at all and that this was completely accidental; he said he is embarrassed by his own stupidity and ?probably forever have to be explaining it, but reiterated this was in no way intentional. Patient was at first resistant to medication trials for anxiety, focused on being prescribed benzodiazapines, however, after discussions he agreed that he'd had a limited trial of Prozac (only took intermittently) and willing tried trial of Lexapro (sheet writer reviewed risks/side- effects of both lexapro and naltrexone to which pt understood, asked questions and agreed to take). Patient also agreed to start naltrexone with goal of getting on Vivitrol so that he could remain sober. Patient continued to deny any suicidal or homicidal ideation during admission and demonstrated appropriate behaviors and impulse control on the unit. Patient discussed some of his struggles with engaging in therapy and agreed to give it another try. Patient felt ready for discharge and placed a 3 day notice. On day of discharge, he was in a good mood with noticeably brighter affect and expressed much gratitude for help he received from staff while on the unit. Patient is returning home where he lives with his parents. He has pending appointments/intake for psychiatric provider and therapist as well as to receive Vivitrol. Pt is not in imminent risk of harm to self or others and request for discharge honored. Patient seen for medical clearance during which time was started omeprazole by hospitalist Status at Discharge Cognitive/behavioral status at discharge: Risk assessment at time of discharge: Patient has been observed closely by nursing and unit staff throughout admission; patient has not engaged in any behaviors that suggest dangerousness to self or others and has demonstrated appropriate behaviors and impulse control. Patient was interviewed prior to discharge and found to be fully oriented and without any SI or HI. Patient has insight and demonstrates good judgment in terms of wanting to pursue treatment. Patient is not in imminent risk of harm to self or others and has a safety plan that includes presenting to the closest ER or calling 911 if feeling unsafe. Functional status at discharge: independent ambulation Overall status at discharge: patient is back to baseline Time Spent with Patient Time spent: Greater than 30 minutes
[2020-12-08] MEDS: LORazepam 1 MG TABLET PO (13:19)
== END 2020-12-08 15:30 | disposition home or self-care (01) | DRG 756 ==
PROVIDERS: Psychiatry & Neurology Psychiatry; Admitting Provider Psychiatry & Neurology Psychiatry; PCP Internal Medicine; Visit Provider Psychiatry & Neurology Psychiatry
DX: F41.1 Generalized anxiety disorder (principal); F11.10 Opioid abuse, uncomplicated; K21.9 Gastro-esophageal reflux disease without esophagitis; F43.10 Post-traumatic stress disorder, unspecified; I10 Essential (primary) hypertension; Z91.5 Personal history of self-harm; Z79.899 Other long term (current) drug therapy
CPT/HCPCS: 36415; 80053; 80061; 80076; 83036; 85025; 93005

== ENCOUNTER 2020-12-15 09:18 | Outpatient (REF) | payer OTHER, SELFPAY ==
[2020-12-15 12:22] LABS: Hemoglobin 15.6 g/dl (14.0-18.0); Mean Corpuscular HGB Conc 33.2 g/dl (31.0-36.0); Mean Corpuscular Hemoglobin 31.7 pg (27.0-33.0); Mean Corpuscular Volume 95.5 fL (80-98); Mean Platelet Volume 10.6 fL (9.4-12.4); Platelet Count 309 X10*3/uL (160-400); Red Blood Count 4.92 X10*6/uL (4.60-5.80); Red Cell Distribution Width 12.1 % (11.0-16.0); White Blood Count 5.7 X10*3/uL (4.8-10.8)
[2020-12-15 12:44] LABS: Alanine Aminotransferase 17 U/L (0-40); Albumin Level 4.4 g/dL (3.5-5.0); Alkaline Phosphatase 57 U/L (39-117); Anion Gap 16 (12-20); Aspartate Amino Transferase 16 U/L (5-37); Bilirubin Direct 0.2 mg/dL (0.0-0.5); Bilirubin Total 0.6 mg/dL (0.0-1.0); Blood Urea Nitrogen 18 mg/dL (9-16); Carbon Dioxide 24 mmol/L (22-29); Chloride 107 mmol/L (96-108); Estimated Glomerular Filt Rate > 60; Glucose Random 95 mg/dL (60-115); Potassium 4.8 mmol/L (3.3-5.1); Sodium 142 mmol/L (135-145); Total Protein 7.1 g/dL (6.5-8.0)
[2020-12-16 07:32] LABS: Hepatitis A Antibody IgG Nonreactive (Nonreactive); ~Hepatitis A Antibody IgG 0.41 S/CO (0.00-0.99)
[2020-12-16 07:41] LABS: HBS Num1 19.99 mIU/mL (0-7.99); HBc Num1 0.11 S/CO (0.00-0.79); HIV AB/AG Nonreactive (Nonreactive); HIV Num 1 0.06 S/CO (0.00-0.99); Hepatitis B Core Antibody Nonreactive (Nonreactive); ~HepC Num1 0.11 S/CO (0.00-0.79); ~Hepatitis B Surface Antibody REACTIVE (Nonreactive); ~Hepatitis C Antibody Nonreactive (Nonreactive)
[2020-12-16 07:48] LABS: HBsAGNum1 0.22 S/CO (0.00-0.99); Hepatitis B Surface Antigen Negative (Negative)
[2020-12-19 10:03] LABS: Fentanyl, Ur NEGATIVE; Norfentanyl, Ur NEGATIVE
[2020-12-22 08:20] LABS: Codeine, Ur NEGATIVE
[2020-12-22 08:21] LABS: Hydromorphone, Ur NEGATIVE; Morphine, Ur NEGATIVE; Norhydrocodone, Ur NEGATIVE; Noroxycodone, Ur NEGATIVE; Oxycodone, Ur NEGATIVE; Oxymorphone, Ur NEGATIVE
[2020-12-26 11:02] LABS: HCV Log PCR SEE ABOVE
== END 2020-12-15 09:19 | disposition home or self-care (01) ==
LOC: HO.LAB 09:18
PROVIDERS: Visit Provider Internal Medicine
DX: F11.99 Opioid use, unspecified with unspecified opioid-induced disorder (principal); Z79.899 Other long term (current) drug therapy
CPT/HCPCS: 36415; 80048; 80076; 80305; 80354; 80364; 80365; 85027; 86481; 86704; 86706; 86708; 86803; 87340; 87389; 87522; 99202

== ENCOUNTER → 2020-12-23 09:47 | Outpatient (BNVA) | payer OTHER, SELFPAY | PROVIDERS: Visit Provider Internal Medicine | DX: F11.10 Opioid abuse, uncomplicated (principal); I11.9 Hypertensive heart disease without heart failure; F43.10 Post-traumatic stress disorder, unspecified; F41.9 Anxiety disorder, unspecified; Z87.891 Personal history of nicotine dependence; Z51.81 Encounter for therapeutic drug level monitoring | CPT/HCPCS: 80305; 99212 ==

== ENCOUNTER → 2020-12-30 09:32 | Outpatient (BNVA) | payer OTHER, SELFPAY | PROVIDERS: Visit Provider Internal Medicine | DX: Z51.81 Encounter for therapeutic drug level monitoring (principal) | CPT/HCPCS: 80305; 99211 ==

== ENCOUNTER 2021-01-06 11:52 | Outpatient (REF) | payer OTHER, SELFPAY ==
[2021-01-11 02:21] LABS: Buprenorphine 310 ng/mL; Norbuprenorphine 870 ng/mL
== END 2021-01-06 11:53 | disposition home or self-care (01) ==
LOC: HO.LAB 11:52
PROVIDERS: Visit Provider Internal Medicine
DX: F11.99 Opioid use, unspecified with unspecified opioid-induced disorder (principal); Z51.81 Encounter for therapeutic drug level monitoring; Z79.899 Other long term (current) drug therapy
CPT/HCPCS: 80305; 80348; 80354; 80364; 80365; 99211

== ENCOUNTER → 2021-01-13 11:31 | Outpatient (BNVA) | payer OTHER, SELFPAY | PROVIDERS: Visit Provider Internal Medicine | DX: F11.20 Opioid dependence, uncomplicated (principal); Z51.81 Encounter for therapeutic drug level monitoring; Z79.899 Other long term (current) drug therapy | CPT/HCPCS: 80305; 96372; 99212 ==

== ENCOUNTER → 2021-02-10 11:31 | Outpatient (BNVA) | payer OTHER, SELFPAY | PROVIDERS: Visit Provider Internal Medicine | DX: Z51.81 Encounter for therapeutic drug level monitoring (principal); F11.90 Opioid use, unspecified, uncomplicated | CPT/HCPCS: 80305; 96372; 99212 ==

== ENCOUNTER 2021-03-15 11:30 | Outpatient (REF) | payer OTHER, SELFPAY ==
[2021-03-15 14:24] LABS: Fentanyl, urine POSITIVE (Not Detect)
[2021-03-27 07:10] LABS: Buprenorphine 361
[2021-03-27 07:11] LABS: Naloxone NEGATIVE; Norbuprenorphine 454
== END 2021-03-15 11:31 | disposition home or self-care (01) ==
LOC: HO.LAB 11:30
PROVIDERS: Visit Provider Internal Medicine
DX: F11.99 Opioid use, unspecified with unspecified opioid-induced disorder (principal); Z51.81 Encounter for therapeutic drug level monitoring; Z87.891 Personal history of nicotine dependence
CPT/HCPCS: 80305; 80307; 80348; 80362; 96372; 99212

== ENCOUNTER → 2021-04-14 13:36 | Outpatient (BNVA) | payer OTHER, SELFPAY | PROVIDERS: Visit Provider Internal Medicine | DX: Z51.81 Encounter for therapeutic drug level monitoring (principal); F11.90 Opioid use, unspecified, uncomplicated | CPT/HCPCS: 80305; 96372; 99212 ==

== ENCOUNTER → 2021-05-19 15:55 | Outpatient (BNVA) | payer OTHER, SELFPAY | PROVIDERS: Visit Provider Internal Medicine | DX: F11.20 Opioid dependence, uncomplicated (principal); Z51.81 Encounter for therapeutic drug level monitoring; Z79.899 Other long term (current) drug therapy | CPT/HCPCS: 80305; 96372; 99212 ==

== ENCOUNTER → 2022-04-08 14:26 | Outpatient (BNVA) | payer OTHER, SELFPAY | PROVIDERS: PCP Internal Medicine; Visit Provider Nurse Practitioner Psychiatric/Mental Health | DX: F11.20 Opioid dependence, uncomplicated (principal) | CPT/HCPCS: 99212 ==

== ENCOUNTER → 2022-04-13 13:49 | Outpatient (BNVA) | payer OTHER, SELFPAY | PROVIDERS: PCP Internal Medicine; Visit Provider Nurse Practitioner Psychiatric/Mental Health | DX: Z51.81 Encounter for therapeutic drug level monitoring (principal); F11.20 Opioid dependence, uncomplicated | CPT/HCPCS: 80305; 99212 ==

== ENCOUNTER 2022-04-20 14:07 | Outpatient (REF) | payer OTHER, SELFPAY ==
[2022-04-20 15:27] LABS: MANUAL DIFF FLAG NO
[2022-04-20 16:51] LABS: Basophils Absolute Auto 0.1 X10*3/uL (0.0-0.2); Basophils Percent Auto 1.1 % (0-2); Eosinophils Absolute Auto 0.2 X10*3/uL (0.0-0.4); Eosinophils Percent Auto 3.7 % (0-4); Hematocrit 43.1 % (42.0-52.0); Hemoglobin 14.6 g/dl (14.0-18.0); Imm Gran Abs Auto 0.01 X10*3/uL (0.00-0.03); Imm Gran Pct Auto 0.2 % (0.0-0.4); Lymphocytes Absolute Auto 1.2 X10*3/uL (1.2-4.9); Lymphocytes Percent Auto 27.4 % (20-40); Mean Corpuscular HGB Conc 33.9 g/dl (31.0-36.0); Mean Corpuscular Hemoglobin 29.9 pg (27.0-33.0); Mean Corpuscular Volume 88.1 fL (80.0-98.0); Mean Platelet Volume 10.4 fL (9.4-12.4); Monocytes Absolute Auto 0.3 X10*3/uL (0.1-1.2); Monocytes Percent Auto 6.6 % (2-11); Neutrophils Absolute Auto 2.7 x10*3/uL (2.0-8.3); Platelet Count 253 X10*3/uL (160-400); Red Blood Count 4.89 X10*6/uL (4.60-5.80); Red Cell Distribution Width 12.5 % (11.0-16.0); White Blood Count 4.4 X10*3/uL (4.8-10.8)
[2022-04-20 17:17] LABS: Alanine Aminotransferase 15 U/L (0-40); Albumin Level 4.7 g/dL (3.5-5.0); Alkaline Phosphatase 62 U/L (39-117); Aspartate Amino Transferase 14 U/L (5-37); Bilirubin Direct 0.2 mg/dL (0.0-0.5); Bilirubin Total 0.6 mg/dL (0.0-1.0); Total Protein 7.7 g/dL (6.5-8.0)
[2022-04-21 08:41] LABS: HBS Num1 12.16 mIU/mL (0-7.99); HBc Num1 0.13 S/CO (0.00-0.79); HBsAGNum1 0.24 S/CO (0.00-0.99); HIV AB/AG Nonreactive (Nonreactive); HIV Num 1 0.08 S/CO (0.00-0.99); Hepatitis B Core Antibody Nonreactive (Nonreactive); Hepatitis B Surface Antigen Negative (Negative); ~HepC Num1 0.19 S/CO (0.00-0.79); ~Hepatitis B Surface Antibody REACTIVE (Nonreactive); ~Hepatitis C Antibody Nonreactive (Nonreactive)
[2022-04-22 07:50] LABS: ~Hepatitis A Antibody IgM Nonreactive (Nonreactive)
[2022-04-26 09:57] LABS: Codeine, Ur NEGATIVE; Hydrocodone, Ur NEGATIVE; Hydromorphone, Ur NEGATIVE; Morphine, Ur NEGATIVE; Norhydrocodone, Ur NEGATIVE; Noroxycodone, Ur NEGATIVE; Oxycodone, Ur NEGATIVE; Oxymorphone, Ur NEGATIVE
== END 2022-04-20 14:08 | disposition home or self-care (01) ==
LOC: HO.LAB 14:07
PROVIDERS: PCP Internal Medicine; Visit Provider Nurse Practitioner Psychiatric/Mental Health
DX: Z11.4 Encounter for screening for human immunodeficiency virus [HIV] (principal); F11.20 Opioid dependence, uncomplicated; Z51.81 Encounter for therapeutic drug level monitoring; Z79.01 Long term (current) use of anticoagulants
CPT/HCPCS: 36415; 80076; 80305; 80348; 80362; 80364; 80365; 85025; 86704; 86706; 86709; 86803; 87340; 87389; 99212